=== PATIENT | male | born 1985 | race Caucasian/White ===

== ENCOUNTER 2018-08-08 01:17 | Emergency (ER) | payer OTHER ==
[2018-08-08 01:49] VITALS: BP 110/73; PULSE 83; TEMP 98.8; BMI 31.3
--- NOTE | 2018-08-08 02:24 | PDOC ---
Attending Attestation - Resident Resident Name: Lion Hess - ED Attending Attestation I have performed the following: I have examined & evaluated the patient, The case was reviewed & discussed with the resident, I agree w/resident's findings & plan, Exceptions are as noted - HPI HPI: 08/08/18 02:23 33 yo M presenting to the ER with a complaint of tooth pain - Physicial Exam PE: 08/08/18 02:52 Multiple dental carries No evidence of apical abscess No facial swelling No pain with neck movement No difficulty swallowing RRR CTA B/L Abd non tender to palpation - Medical Decision Making 08/08/18 02:24 D/c to home with dental follow up
--- NOTE | 2018-08-08 02:50 | PDOC ---
History of Present Illness - General Chief Complaint: Toothache Stated Complaint: TOOTHACHE Time Seen by Provider: 08/08/18 02:20 - History of Present Illness Initial Comments: 08/08/18 02:43 33 yo M with no significant pmh who p/w left lower mandibular teeth pain. Patient reports 1 week of worsening, unremitting, sharp, left lower mandibular teeth pain, with absent drainage, or discharge. States that he has pain with mastication, and cold/warm foods. H/o partial dentures, but patient states that they are missing. Does not f/w dental. Patient denies trismus, drooling, dysphagia, sore throat, PATEL, N/V, F,C, CP, SOB , urinary complaints, abdominal pain, diarrhea, constipation, lightheadedness, weakness, sensory changes. PMHx: as noted above ROS: as noted Allergies: NKDA Past History - Past Medical History Allergies/Adverse Reactions: Allergies Allergy/AdvReac Type Severity Reaction Status Date / Time No Known Allergies Allergy Verified 08/08/18 01:49 Home Medications: Ambulatory Orders Clindamycin [Cleocin -] 450 mg PO Q8H 7 Days #63 capsule MDD 6 tab 08/08/18 Oxycodone HCl/Acetaminophen [Percocet 5-325 mg Tablet -] 1 tab PO TID PRN #9 tablet MDD 3 08/08/18 - Suicide/Smoking/Psychosocial Hx Smoking History: Never smoked Have you smoked in the past 12 months: No Information on smoking cessation initiated: No Hx Alcohol Use: No Drug/Substance Use Hx: No Review of Systems - Review of Systems Comments:: 08/08/18 02:53 GENERAL/CONSTITUTIONAL: No fever or chills. No weakness. HEAD, EYES, EARS, NOSE AND THROAT: + teeth pain. No change in vision. No ear pain or discharge. No sore throat. CARDIOVASCULAR: No chest pain or shortness of breath RESPIRATORY: No cough, wheezing, or hemoptysis. GASTROINTESTINAL: No nausea, vomiting, diarrhea or constipation. GENITOURINARY: No dysuria, frequency, or change in urination. MUSCULOSKELETAL: No joint or muscle swelling or pain. No neck or back pain. SKIN: No rash NEUROLOGIC: No headache, vertigo, loss of consciousness, or change in strength/ sensation. ENDOCRINE: No increased thirst. No abnormal weight change HEMATOLOGIC/LYMPHATIC: No anemia, easy bleeding, or history of blood clots. ALLERGIC/IMMUNOLOGIC: No hives or skin allergy. *Physical Exam - Vital Signs Last Vital Signs Temp Pulse Resp BP Pulse Ox 98.8 F 83 18 110/73 99 08/08/18 01:45 08/08/18 01:45 08/08/18 01:45 08/08/18 01:45 08/08/18 01:45 - Physical Exam Comments: 08/08/18 02:53 GENERAL: Awake, alert, and fully oriented, in no acute distress HEAD: No signs of trauma, normocephalic, atraumatic EYES: PERRLA, EOMI, sclera anicteric, conjunctiva clear ENT: + Multiple dental carries with prominent carries in left sided lower mandibular molars. Dentin visualized. Absent discharge, or mandibular swelling. Auricles normal inspection, hearing grossly normal, nares patent, oropharynx clear without exudates. Moist mucosa NECK: Normal ROM, supple, no lymphadenopathy, JVD, or masses LUNGS: No distress, speaks full sentences, clear to auscultation bilaterally HEART: Regular rate and rhythm, normal S1 and S2, no murmurs, rubs or gallops, peripheral pulses normal and equal bilaterally. EXTREMITIES : Normal inspection, Normal range of motion, no edema. No clubbing or cyanosis. SKIN: Warm, Dry, normal turgor, no rashes or lesions noted Medical Decision Making - Medical Decision Making 08/08/18 02:55 33 yo M with no significant pmh who p/w left lower mandibular teeth pain. VSS, AF, + multiple dental carries with prominent carries in left sided lower mandibular molars and visualized dentin. Absent fluctuance, mass, discharge. No evidence of mastoiditis, peritonsillar abscess. Low suspicion periodontal abscess, sialadenolithiasis, parotitis. ED Course: Patient advised to f/u with dental. Percocet and Clindamycin 450 mg Q8 x 7 days sent to pharmacy Patient stable for d/c with return precautions. *DC/Admit/Observation/Transfer Diagnosis at time of Disposition: Infected dental carries - Discharge Dispostion Disposition: HOME Condition at time of disposition: Fair - Prescriptions Prescriptions: Clindamycin [Cleocin -] 450 mg PO Q8H 7 Days #63 capsule MDD 6 tab Oxycodone HCl/Acetaminophen [Percocet 5-325 mg Tablet -] 1 tab PO TID PRN #9 tablet MDD 3 PRN Reason: Severe Pain - Referrals Referrals: Andres Smith MD [Primary Care Provider] - - Patient Instructions Printed Discharge Instructions: DI for Tooth Decay Additional Instructions: Please return to the emergency department with any new or worsening symptoms or concerns. Please follow up with your primary care physician within 72 hours. Please take Clindamycin 450 mg every 8 hours daily for 7 days. Please take Percocet as prescribed. - Post Discharge Activity - Attestations Physician Attestion: 08/08/18 02:46 I attest to the information provided in this note.
== END 2018-08-08 03:03 | disposition home or self-care (01) ==
LOC: JER 01:17
DX: K08.89 Other specified disorders of teeth and supporting structures (principal)
CPT/HCPCS: 99282-25

== ENCOUNTER 2025-03-31 06:24 | Emergency (ER) | payer OTHER ==
[2025-03-31 06:52] VITALS: BP 106/71; PULSE 60; RESP 18; TEMP 97.9; BMI 33.6
[2025-03-31] MEDS ORDERED: IBUPROFEN 600 MG TABLET (FP) PO ONE (07:53)
[2025-03-31] MEDS: IBUPROFEN 400 MG TABLET (FP) PO ONE (08:01)
== END 2025-03-31 09:18 | disposition home or self-care (01) ==
LOC: JER 06:24 → JERFT 06:24
DX: M25.562 Pain in left knee (principal); M25.572 Pain in left ankle and joints of left foot; G89.29 Other chronic pain; K05.10 Chronic gingivitis, plaque induced
CPT/HCPCS: 99283-25